=== PATIENT | female | born 1985 | race Caucasian/White ===

== ENCOUNTER 2016-05-12 10:32 | Inpatient (IN) | payer OTHER ==
[~2016-05-12] VITALS: Ht 170.2 cm; Wt 127.3 kg
[2016-05-12] MEDS ORDERED: OXYTOCIN 30U/ 0.9% NaCL 500ML 500 ML IV SCH (10:47)
[2016-05-12] MEDS ORDERED: LACTATED RINGERS 1,000 ML IV SCH ×2 (10:47→11:00)
[2016-05-12] MEDS ORDERED: METOCLOPRAMIDE 5 MG/ML, 2ML IV ONE (11:00)
[2016-05-12] MEDS ORDERED: LACTATED RINGERS 1,000 ML IVBOLUS ONE (11:00)
[2016-05-12] MEDS ORDERED: SODIUM CITRATE/CITRIC ACID 30 ML UDC PO ONE (11:00)
[2016-05-12] MEDS ORDERED: NEWBORN KIT ONE (11:17)
[2016-05-12] MEDS ORDERED: SODIUM CITRATE/CITRIC ACID 30 ML UDC ONE (11:17)
[2016-05-12] MEDS ORDERED: OXYTOCIN 30U/ 0.9% NaCL 500ML 500 ML ONE (11:17)
[2016-05-12] MEDS ORDERED: METOCLOPRAMIDE 5 MG/ML, 2ML ONE (11:17)
[2016-05-12 11:23] VITALS: BP 133/79
[2016-05-12] MEDS: OXYTOCIN 30U/ 0.9% NaCL 500ML 500 ML IV SCH ×2 (11:33→21:33)
[2016-05-12] MEDS: LACTATED RINGERS 1,000 ML IV SCH ×2 (11:33→23:11)
[2016-05-12] MEDS ORDERED: FENTANYL PF 100 MCG/2ML ONE (11:44)
[2016-05-12] MEDS ORDERED: HYDROmorphone 2 MG/ML, 1ML ONE (11:44)
[2016-05-12] MEDS ORDERED: MEPERIDINE/PF 50 MG/ML IM PRN (12:00)
[2016-05-12] MEDS ORDERED: HYDROmorphone/PF 4 MG/ML, 1ML IM PRN (12:00)
[2016-05-12] MEDS ORDERED: RHOGAM FROM BLOOD BANK 1 NOTE EA IM/IV ONE (12:00)
[2016-05-12] MEDS ORDERED: MEASLES,MUMPS&RUBELLA VACC/PF 0.5 ML SQ-VACC PRN (12:00)
[2016-05-12] MEDS ORDERED: DIPH,PERTUSS(ACELL),TET VAC/PF NC IM-VACC PRN (12:00)
[2016-05-12] MEDS ORDERED: MISOPROSTOL 200 MCG TABLET PR PRN (12:00)
[2016-05-12] MEDS ORDERED: ONDANSETRON 2MG/ML, 2ML IV PRN (12:00)
[2016-05-12 12:09] LABS: HEMOGLOBIN 12.8 g/dL (11.7-16.4)
[2016-05-12] MEDS ORDERED: MISOPROSTOL 200 MCG TABLET ONE (14:53)
[2016-05-12] MEDS ORDERED: DIPH,PERTUSS(ACELL),TET VAC/PF NC IM-VACC ONE (15:06)
[2016-05-12 16:00] VITALS: BP_SYST 104; BP_SYST 139; BP_DIAS 71; BP_DIAS 86
[2016-05-12] MEDS: OXYcodone IR 5MG TABLET PO PRN ×3 (17:19→22:28)
[2016-05-12 18:05] VITALS: BP 137/80
[2016-05-12] MEDS: KETOROLAC 30 MG/1 ML IV SCH (20:07)
[2016-05-12 20:10] VITALS: BP 142/82
[2016-05-12 21:18] LABS: HEMOGLOBIN 11.3 g/dL (11.7-16.4)
[2016-05-13 00:20] VITALS: BP 133/78
[2016-05-13] MEDS ORDERED: OXYcodone IR 5MG TABLET ONE (02:12)
[2016-05-13] MEDS: KETOROLAC 30 MG/1 ML IV SCH ×3 (02:18→13:17)
[2016-05-13] MEDS: OXYcodone IR 5MG TABLET PO PRN ×5 (02:18→22:48)
[2016-05-13] MEDS: LACTATED RINGERS 1,000 ML IV SCH ×3 (03:33→19:33)
[2016-05-13 05:00] VITALS: BP 138/85
[2016-05-13 06:55] VITALS: BP 140/91
[2016-05-13] MEDS: OXYTOCIN 30U/ 0.9% NaCL 500ML 500 ML IV SCH ×2 (07:33→16:17)
[2016-05-13] MEDS: PRENATAL VIT/IRON/FA 1 EACH TABLET PO SCH (09:00)
[2016-05-13 11:45] VITALS: BP 151/93
[2016-05-13 15:26] VITALS: BP 136/84
[2016-05-13] MEDS: IBUPROFEN 600 MG TABLET PO PRN ×2 (15:57→22:48)
[2016-05-13 21:00] VITALS: BP 134/82
[2016-05-13] MEDS: DOCUSATE 100 MG CAPSULE PO PRN (22:48)
[2016-05-14] MEDS: LACTATED RINGERS 1,000 ML IV SCH (01:08)
[2016-05-14 03:32] VITALS: BP 137/71
[2016-05-14] MEDS: OXYTOCIN 30U/ 0.9% NaCL 500ML 500 ML IV SCH ×2 (03:33→04:51)
[2016-05-14] MEDS: IBUPROFEN 600 MG TABLET PO PRN ×2 (05:32→15:03)
[2016-05-14] MEDS: OXYcodone IR 5MG TABLET PO PRN ×3 (05:32→20:12)
[2016-05-14 07:02] VITALS: BP 132/80
[2016-05-14] MEDS: PRENATAL VIT/IRON/FA 1 EACH TABLET PO SCH (10:40)
[2016-05-14] MEDS: DOCUSATE 100 MG CAPSULE PO PRN ×2 (10:40→20:12)
[2016-05-14 11:28] VITALS: BP 127/80
[2016-05-14 15:33] VITALS: BP 126/75
[2016-05-14 21:00] VITALS: BP 143/87
[2016-05-15] MEDS: OXYcodone IR 5MG TABLET PO PRN ×2 (02:21→12:10)
[2016-05-15] MEDS: IBUPROFEN 600 MG TABLET PO PRN ×2 (02:21→12:10)
[2016-05-15] MEDS: LACTATED RINGERS 1,000 ML IV SCH ×2 (03:33→03:35)
[2016-05-15] MEDS ORDERED: IBUP-1222 PO (07:33)
[2016-05-15] MEDS ORDERED: OXYC-302 PO (07:34)
[2016-05-15 07:47] VITALS: BP 149/85
[2016-05-15] MEDS: PRENATAL VIT/IRON/FA 1 EACH TABLET PO SCH (07:59)
[2016-05-15] MEDS: DOCUSATE 100 MG CAPSULE PO PRN (07:59)
[2016-05-15] MEDS: OXYTOCIN 30U/ 0.9% NaCL 500ML 500 ML IV SCH (08:00)
== END 2016-05-15 12:19 | disposition home or self-care (01) | DRG 766 ==
LOC: LDIP 10:32 → 2NW 15:46
PROVIDERS: ADMIT Specialist; ATTEND Specialist
PROC: 10D00Z1 Extraction of Products of Conception, Low, Open Approach (ICD-10-PCS; principal; 2016-05-12)
DX: O34.211 Maternal care for low transverse scar from previous cesarean delivery (principal); Z37.0 Single live birth; Z82.49 Family history of ischemic heart disease and other diseases of the circulatory system; Z83.49 Family history of other endocrine, nutritional and metabolic diseases; Z3A.39 39 weeks gestation of pregnancy
CPT/HCPCS: 36415; 85025; 86850; 86900; 90715; J1170; J1885; J2175; J3010; J2590; J2765; J7120